=== PATIENT | male | born 2000 | race Caucasian/White ===

== ENCOUNTER 2018-05-09 23:04 | Emergency (ER) | payer BC, SELFPAY ==
[2018-05-09 23:10] VITALS: BP 157/83; PULSE 91; RESP 16; TEMP 36.5; O2SAT 98
--- NOTE | 2018-05-09 23:55 | W.ED.GENAD ---
Discharge Plan Disposition Patient Disposition: HOME Discharge Details Chief Complaint: Cellulitis Clinical Impression: Cellulitis ED Provider: Marcio Salcido Home Meds and New Rx's Prescriptions: New cephalexin [Keflex] 500 mg capsule 500 mg PO QID Qty: 38 RF: 0 Discharge Instructions Instructions: Cephalexin (By mouth), Cellulitis (ED) Additional Instructions: Be sure to take the full antibioitc as prescribed. You received a dose tonight. You were provided a dose for the morning. Please follow-up with general surgery for recurrent umbilical infection and abscess. Return to the ER for worsening or new concerning symptoms. Referrals: Stefanie Alfaro MD [ [facility] STAFF PHYSICIAN] - Medical Decision Making 18-year-old male here with recurrent umbilical infection. Concern for urachal cyst and intermittent abscess -currently draining purulent discharge. Plan to treat with Keflex 500 mg 4 times daily times 10 days. Given recurrence and will have him follow-up with general surgery. HPI General Mode of arrival: ambulatory. Date/Time Provider Initiated Documentation: 05/09/18 23:55. Limitations to Documentation: no limitations. Information obtained by: patient. HPI Narrative: 18-year-old male presents with chief complaint of infection of his bellybutton. Patient notes that he developed a pressure-like pain in his bellybutton area earlier today. He then had subsequent rupture and significant drainage of purulent discharge. Pressure sensation that improved. He continues to have some discharge and now redness around his umbilicus. He does note that he has had for similar infections of the same area but most recently a few months ago. Symptoms today are moderate. No associated abdominal pain. No fever. No other rash. Related Data Home Medications Medication Instructions Recorded Confirmed cephalexin [Keflex] 500 mg PO QID #38 cap 05/09/18 Previous Rx's Medication Instructions Recorded cephalexin [Keflex] 500 mg PO QID #38 cap 05/09/18 Allergies Allergy/AdvReac Type Severity Reaction Status Date / Time No Known Allergies Allergy Unverified 05/09/18 23:12 General Stated Complaint: Cellulitis ANGLE: 5 Review of Systems Constitutional Denies fever(s) Gastrointestinal Denies abdominal pain and Denies nausea Integumentary/Breasts Reports as per HPI PFS Social History Smoking/Tobacco Use Status: Never Exam Const General: cooperative and no acute distress HENMT Mouth: moist mucous membranes Eyes Conjunctivae: normal conjunctivae Sclera: normal sclerae Resp Auscultation: clear to auscultation bilaterally, no rales, no rhonchi and no wheezes Cardio Jugular venous pressure: no JVD Rate: regular rate and not tachycardic Rhythm: regular rhythm GI Palpation: soft, not firm, no guarding, no masses, not rigid and nontender Skin Other: umbilicus with purulent discharge and localized erythema, no induration or fluctuance Neuro General: alert and awake Extrem General: no edema Psych Appearance: grossly normal Mental Status: mental status grossly normal Course Vital Signs Temperature 36.5 C 05/09/18 23:10 Pulse 91 H 05/09/18 23:10 Respiratory Rate 16 05/09/18 23:10 Blood Pressure 157/83 H 05/09/18 23:10 Pulse Oximetry 98 05/09/18 23:10 Temperature 36.5 C 05/09/18 23:10 Temperature Source Temporal Artery Scan 05/09/18 23:10 Pulse 91 H 05/09/18 23:10 Respiratory Rate 16 05/09/18 23:10 Blood Pressure 157/83 H 05/09/18 23:10 Blood Pressure Position Sitting 05/09/18 23:10 Pulse Oximetry 98 05/09/18 23:10 Oxygen Delivery Method Room Air 05/09/18 23:10 Oxygen Flow Rate 0 05/09/18 23:10
[2018-05-10] MEDS: Cephalexin 500 MG CAP PO ×2 (00:02→00:03)
--- NOTE | 2018-05-10 00:07 | ED.GENADUL_ITS ---
Discharge Plan Disposition Patient Disposition: HOME Discharge Details Chief Complaint: Cellulitis Clinical Impression: Cellulitis ED Provider: Marcio Salcido Home Meds and New Rx's Prescriptions: New cephalexin [Keflex] 500 mg capsule 500 mg PO QID Qty: 38 RF: 0 Discharge Instructions Instructions: Cephalexin (By mouth), Cellulitis (ED) Additional Instructions: Be sure to take the full antibioitc as prescribed. You received a dose tonight. You were provided a dose for the morning. Please follow-up with general surgery for recurrent umbilical infection and abscess. Return to the ER for worsening or new concerning symptoms. Referrals: Stefanie Alfaro MD [ [facility] STAFF PHYSICIAN] - Medical Decision Making 18-year-old male here with recurrent umbilical infection. Concern for urachal cyst and intermittent abscess -currently draining purulent discharge. Plan to treat with Keflex 500 mg 4 times daily times 10 days. Given recurrence and will have him follow-up with general surgery. HPI General Mode of arrival: ambulatory . Date/Time Provider Initiated Documentation: 05/09/18 23:55 . Limitations to Documentation: no limitations . Information obtained by: patient . HPI Narrative: 18-year-old male presents with chief complaint of infection of his bellybutton. Patient notes that he developed a pressure-like pain in his bellybutton area earlier today. He then had subsequent rupture and significant drainage of purulent discharge. Pressure sensation that improved. He continues to have some discharge and now redness around his umbilicus. He does note that he has had for similar infections of the same area but most recently a few months ago. Symptoms today are moderate. No associated abdominal pain. No fever. No other rash. Related Data Home Medications Medication Instructions Recorded Confirmed cephalexin [Keflex] 500 mg PO QID #38 cap 05/09/18 Previous Rx's Medication Instructions Recorded cephalexin [Keflex] 500 mg PO QID #38 cap 05/09/18 Allergies Allergy/AdvReac Type Severity Reaction Status Date / Time No Known Allergies Allergy Unverified 05/09/18 23:12 General Stated Complaint: Cellulitis ANGLE: 5 Review of Systems Constitutional Denies fever(s) Gastrointestinal Denies abdominal pain and Denies nausea Integumentary/Breasts Reports as per HPI PFS Social History Smoking/Tobacco Use Status: Never Exam Const General: cooperative and no acute distress HENMT Mouth: moist mucous membranes Eyes Conjunctivae: normal conjunctivae Sclera: normal sclerae Resp Auscultation: clear to auscultation bilaterally, no rales, no rhonchi and no wheezes Cardio Jugular venous pressure: no JVD Rate: regular rate and not tachycardic Rhythm: regular rhythm GI Palpation: soft, not firm, no guarding, no masses, not rigid and nontender Skin Other: umbilicus with purulent discharge and localized erythema, no induration or fluctuance Neuro General: alert and awake Extrem General: no edema Psych Appearance: grossly normal Mental Status: mental status grossly normal Course Vital Signs Temperature 36.5 C 05/09/18 23:10 Pulse 91 H 05/09/18 23:10 Respiratory Rate 16 05/09/18 23:10 Blood Pressure 157/83 H 05/09/18 23:10 Pulse Oximetry 98 05/09/18 23:10 Temperature 36.5 C 05/09/18 23:10 Temperature Source Temporal Artery Scan 05/09/18 23:10 Pulse 91 H 05/09/18 23:10 Respiratory Rate 16 05/09/18 23:10 Blood Pressure 157/83 H 05/09/18 23:10 Blood Pressure Position Sitting 05/09/18 23:10 Pulse Oximetry 98 05/09/18 23:10 Oxygen Delivery Method Room Air 05/09/18 23:10 Oxygen Flow Rate 0 05/09/18 23:10
--- NOTE | 2018-05-10 09:48 | PDOC.ERCMPRO ---
Care Management Progress Note 05/10-Dr. Salcido requested assistance with a surgical and PCP referral this week for umbilical infection, recurrent, concern for abscess. 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 Referral faxed to [facility] and [facility] this am.
--- NOTE | 2018-05-10 09:55 | CMPROGNOTE_ITS ---
Care Management Progress Note 05/10-Dr. Salcido requested assistance with a surgical and PCP referral this week for umbilical infection, recurrent, concern for abscess. 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 Referral faxed to [facility] and [facility] this am.
== END 2018-05-10 00:22 | disposition home or self-care (01) ==
LOC: ER 05-10 00:22
PROVIDERS: Emergency Provider Student in an Organized Health Care Education/Training Program
DX: L03.316 Cellulitis of umbilicus (principal)
CPT/HCPCS: 99283